=== PATIENT | male | born 1975 | race Caucasian/White ===

== ENCOUNTER 2016-12-31 17:24 | Emergency (ER) | payer OTHER ==
[~2016-12-31] VITALS: Ht 185.4 cm; Wt 116.7 kg
[~2016-12-31 17:24] MED LIST: BENTYL10 MG PO; FLEXERIL10 MG PO; HYDROCODON-ACE1 EAC7 PO; MOTRIN800 MG PO; no home
[2016-12-31 19:41] VITALS: BP 136/87
== END 2016-12-31 19:43 | disposition home or self-care (01) ==
LOC: EME 17:24
PROC: 3E0234Z Introduction of Serum, Toxoid and Vaccine into Muscle, Percutaneous Approach (ICD-10-PCS; principal; 2016-12-31)
DX: S70.11XA Contusion of right thigh, initial encounter (principal); I10 Essential (primary) hypertension; W55.22XA Struck by cow, initial encounter; Z23 Encounter for immunization; Z88.1 Allergy status to other antibiotic agents; Z87.891 Personal history of nicotine dependence
CPT/HCPCS: 76882; 99281; 99283